=== PATIENT | female | born 2005 | race Caucasian/White ===

== ENCOUNTER 2024-01-23 17:50 | Emergency (ER) | payer OTHER, SELFPAY ==
[2024-01-23 17:51] VITALS: BP 138/88; PULSE 113; TEMP 37.2; O2SAT 100; BMI 20.8
--- NOTE | 2024-01-23 17:56 | ECG_ITS ---
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
[2024-01-23] MEDS: BACITRACIN OINTMENT 28.4 GM TUBE 1 APPLIC TOPICAL (18:33)
[2024-01-23 20:12] VITALS: BP 140/92
[2024-01-23 20:14] VITALS: O2SAT 99
== END 2024-01-23 20:15 | disposition home or self-care (01) ==
PROVIDERS: Emergency Provider Emergency Medicine
DX: S60.031A Contusion of right middle finger without damage to nail, initial encounter (principal); S70.212A Abrasion, left hip, initial encounter; S70.211A Abrasion, right hip, initial encounter; S20.312A Abrasion of left front wall of thorax, initial encounter; S60.811A Abrasion of right wrist, initial encounter; V43.52XA Car driver injured in collision with other type car in traffic accident, initial encounter
CPT/HCPCS: 73130; 93005; 99283

== ENCOUNTER 2024-02-19 12:27 | Emergency (ER) | payer OTHER, SELFPAY ==
[2024-02-19 12:31] VITALS: BP 133/82; PULSE 107; TEMP 36.9; O2SAT 100; BMI 19.7
--- NOTE | 2024-02-19 12:36 | XR_ITS ---
The [address] [address] Patient Name: ANABELLA MANLEY MRN: [id number] date: 2005 Sex: F Assigned Patient Location: ER Current Patient Location: ER Accession/Order Number: [id number] Exam Date: 02/19/2024 12:50 Report Date: 02/19/2024 13:02 At the request of: CAYDEN PRECIADO Procedure: XR hand RT min 3V PROCEDURE: XR hand RT min 3V COMPARISON: 01/13/2024 HISTORY: 3rd digit pain FINDINGS: BONES:No fracture, acute abnormality, or significant arthropathy. SOFT TISSUES:Negative. No visible soft tissue swelling. EFFUSION:None visible. OTHER: Negative. XR/XR hand RT min 3V IMPRESSION: No acute disease. Electronically authenticated by: FERNANDO MÁRQUEZ Date: 02/19/2024 13:02
[2024-02-19 13:28] VITALS: BP 122/72; PULSE 96; O2SAT 100
--- NOTE | 2024-02-19 14:30 | ED_ITS ---
HPI HPI - General Adult General Chief complaint: Extremity Problem, Nontraumatic Stated complaint: RIGHT HAND PAIN Time Seen by Provider: 02/19/24 12:30 Source: patient Mode of arrival: walk-in Limitations: no limitations History of Present Illness HPI narrative: 18-year-old female to the emergency department chief complaint of bump on her finger. Patient reports a recent traumatic injury to her finger. She had x-ray imaging it was reported as negative. She reports that she has a nonpainful bump on the middle phalanx dorsally of her third digit. No other complaints. Related Data Home Medications ?Medication ?Instructions ?Recorded ?Confirmed montelukast 10 mg tablet mg 02/19/24 Allergies Allergy/AdvReac Type Severity Reaction Status Date / Time No Known Drug Allergies Allergy Verified 02/19/24 12:31 Opioid HPI Opioid Management Most Recent Opioid Data: Last Pain Scale 0 02/19/24 12:36 Review of Systems ROS Status of ROS 10 or more systems reviewed and unremark able except as noted in history and below Exam Narrative Exam Narrative: Left hand: radial pulse intact. flexor and extensor tendon function is intact. Non tender hard pea sized bump to the mid 3rd dorsal phalanx. non- mobile. Constitutional Vital Signs, click to edit/add: Last Vital Signs Temp 98.4 F 02/19/24 12:31 Pulse 96 H 02/19/24 13:28 Resp 16 02/19/24 13:28 BP 122/72 02/19/24 13:28 Pulse Ox 100 02/19/24 13:28 O2 Del Method Room Air 02/19/24 12:31 Course Vital Signs Vital signs: Vital Signs Temperature 98.4 F 02/19/24 12:31 Pulse Rate 107 H 02/19/24 12:31 Respiratory Rate 16 02/19/24 12:31 Blood Pressure 133/82 02/19/24 12:31 Pulse Oximetry 100 02/19/24 12:31 Oxygen Delivery Method Room Air 02/19/24 12:31 Temperature 98.4 F 02/19/24 12:31 Pulse Rate 96 H 02/19/24 13:28 Respiratory Rate 16 02/19/24 13:28 Blood Pressure 122/72 02/19/24 13:28 Pulse Oximetry 100 02/19/24 13:28 Oxygen Delivery Method Room Air 02/19/24 12:31 Medical Decision Making MDM Narrative Medical decision making narrative: 18-year-old female with bump to her middle mid phalanx on the third digit on her left hand. X-ray without acute findings. Suspect periosteal hematoma currently resolving. She is given orthopedic referral if it does not resolve in a month. Return precautions were discussed. All questions were answered. Patient was discharged home. Medical Records Medical records reviewed: Yes I reviewed the patient's medical records Imaging Data X-ray Hand: Attestation: I have reviewed the pertinent imaging results. Radiologist's impression: ITS Impressions Hand X-Ray 02/19/24 12:36 IMPRESSION: No acute disease. Electronically authenticated by: FERNANDO MÁRQUEZ Date: 02/19/2024 13:02 Discharge Plan Discharge Stand Alone Forms: Portal Instructions Chief Complaint: Extremity Problem, Nontraumatic Clinical Impression: Hematoma Patient Disposition: Home, Self-Care Time of Disposition Decision: 13:23 Condition: Good Prescriptions / Home Meds: No Action montelukast 10 mg tablet Print Language: Chadian Referrals: Physician,Non-Staff, [Primary Care Provider] - 1 week Ross Florez MD [Physician] - 04/07/24 (Follow-up if it does not resolve) Discharge Date/Time: 02/19/24 13:29
== END 2024-02-19 13:29 | disposition home or self-care (01) ==
PROVIDERS: Emergency Provider Student in an Organized Health Care Education/Training Program
DX: S60.032A Contusion of left middle finger without damage to nail, initial encounter (principal); X58.XXXA Exposure to other specified factors, initial encounter
CPT/HCPCS: 73130; 99283